=== PATIENT | male | born 1955 | race Caucasian/White ===

== ENCOUNTER 2016-05-07 20:42 | Inpatient (IN) | payer MEDICARE ==
[~2016-05-07 20:42] MED LIST: Sodium Chloride 0.9% 100 ML BAG ONE
[2016-05-07 21:31] LABS: Prothrombin Time 13.9 SEC (12.0-14.7)
[2016-05-07 21:31] LABS: Bilirubin Negative (Negative); Blood, Urine Trace (Negative); Clarity Clear (Clear); Glucose, Urine (Dipstick) Negative (Negative); Leukocyte Small (Negative); Nitrite Negative (Negative); Protein, Urine (Dipstick) Trace mg/dL (Neg-Trace); Specific Gravity, Urine 1.015 (1.005-1.030)
--- NOTE | 2016-05-07 21:31 | RAD ---
PORTABLE SEMIUPRIGHT FRONTAL CHEST RADIOGRAPH 05/07/16 COMPARISON: 10/02/15 HISTORY: Altered mental status. FINDINGS: There is mild prominence of the cardiac silhouette, stable. Inspiration is shallow. No pneumothorax, pleural fluid, focal consolidation, or alveolar edema. IMPRESSION: No acute findings. POS: [facility]
[2016-05-07 21:32] LABS: PTT 31.9 SEC (22.9-36.1)
[2016-05-07 21:42] LABS: ALT (SGPT) 12 U/L (0-55); AST (SGOT) 10 U/L (5-34); Albumin 3.7 g/dL (3.4-4.8); Alkaline Phosphatase 63 U/L (40-150); Anion Gap 18 mmol/L (10-20); BUN (Urea Nitrogen) 21 mg/dL (8.4-25.7); Bilirubin, Total 0.7 mg/dL (0.2-1.2); Calc. Creatinine Clearance 0 mL/min (70-130); Calcium 9.4 mg/dL (7.8-10.44); Carbon Dioxide 25 mmol/L (23-31); Chloride 101 mmol/L (98-107); Estimated GFR-MDRD 65; Glucose 155 mg/dL (80-115); Protein, Total 6.7 g/dL (5.8-8.1); Sodium 140 mmol/L (136-145)
[2016-05-07] MEDS ORDERED: Lorazepam 2 MG/ML VIAL ONE (21:55)
[2016-05-07 21:56] LABS: Bacteria/HPF 4+ HPF (None Seen); Other Casts/LPF 7-10 MIXED CASTS LPF (0-3 Hyaline); Renal Epithelial 0-3 HPF (0-3); Squamous Epithelial 0-3 HPF (0-3); Transitional Epithelial 0-3 HPF (0-3); WBC/HPF 21-50 HPF (0-3); Yeast-All Forms Rare HPF (None Seen)
[2016-05-07 21:56] LABS: Hemoglobin 12.2 g/dL (14.0-18.0); Mean Corpuscular Hemoglobin 29.8 pg (27.0-31.0); Mean Corpuscular Volume 87.6 fl (80.0-94.0); Mean Platelet Volume 10.8 fL (7.4-10.4); Platelet Count 121 thou/uL (130-400); RBC Distribution Width 14.6 % (11.5-14.5); White Blood Cell (WBC) Count 11.1 thou/uL (4.8-10.8)
[2016-05-07 21:57] LABS: Lymphocytes 8 % (21-51); Neutrophil 75 % (42-75)
[2016-05-07 21:58] LABS: Band 8 % (5-11); Metamyelocyte 1 % (0-0); Monocytes 4 % (0-10); Myelocyte 1 % (0-0)
[2016-05-07] MEDS ORDERED: Gentamicin 80 MG/2 ML VIAL ONE (23:18)
[2016-05-07] MEDS ORDERED: cefTRIAXone\\ROCEPHIN 2 GM VIAL ONE (23:18)
[2016-05-07] MEDS ORDERED: Enoxaparin Sodium 40 MG/0.4 ML SYRINGE ONE (23:19)
[2016-05-08] MEDS ORDERED: Acetaminophen 325 MG TAB PO PRN (00:36)
[2016-05-08] MEDS ORDERED: HYDROcodone/Acetaminophen 5/325 mg Tablet PO PRN ×2 (00:36)
[2016-05-08] MEDS ORDERED: Guaifenesin DM 100-10/5 ML UDCUP PO PRN (00:36)
[2016-05-08] MEDS ORDERED: Enoxaparin Sodium 40 MG/0.4 ML SYRINGE SC SCH (00:36)
[2016-05-08] MEDS ORDERED: Ondansetron HCl/PF 4 MG/2 ML Vial SLOW IVP PRN (00:36)
[2016-05-08] MEDS ORDERED: Loperamide HCl 2 MG CAP PO PRN ×2 (00:36)
[2016-05-08] MEDS ORDERED: Bisacodyl 5 MG TAB PO PRN (00:36)
[2016-05-08] MEDS ORDERED: Zolpidem Tartrate 5 MG TAB PO PRN (00:36)
[2016-05-08] MEDS ORDERED: Lorazepam 2 MG/ML VIAL SLOW IVP PRN ×2 (00:38→11:12)
[2016-05-08 08:30] LABS: Lactic Acid 0.8 mmol/L (0.5-2.2)
[2016-05-08 08:34] LABS: ALT (SGPT) 11 U/L (0-55); AST (SGOT) 11 U/L (5-34); Albumin 3.6 g/dL (3.4-4.8); Alkaline Phosphatase 66 U/L (40-150); Anion Gap 17 mmol/L (10-20); BUN (Urea Nitrogen) 20 mg/dL (8.4-25.7); Bilirubin, Total 0.5 mg/dL (0.2-1.2); Calc. Creatinine Clearance 92 mL/min (70-130); Calcium 9.5 mg/dL (7.8-10.44); Carbon Dioxide 24 mmol/L (23-31); Chloride 103 mmol/L (98-107); Estimated GFR-MDRD 71; Globulin 3.2 g/dL (2.4-3.5); Glucose 160 mg/dL (80-115); Potassium 3.9 mmol/L (3.5-5.1); Protein, Total 6.8 g/dL (5.8-8.1); Sodium 140 mmol/L (136-145)
[2016-05-08 09:07] LABS: Hemoglobin 12.6 g/dL (14.0-18.0); Mean Corpuscular HGB CONC 33.5 g/dL (32.0-36.0); Mean Corpuscular Hemoglobin 29.3 pg (27.0-31.0); Mean Corpuscular Volume 87.5 fl (80.0-94.0); Mean Platelet Volume 10.8 fL (7.4-10.4); Platelet Count 124 thou/uL (130-400); RBC Distribution Width 14.5 % (11.5-14.5); Red Blood Cell (RBC) Count 4.29 mill/uL (4.70-6.10); White Blood Cell (WBC) Count 8.3 thou/uL (4.8-10.8)
[2016-05-08 09:39] LABS: Band 6 % (5-11); Lymphocytes 11 % (21-51); Metamyelocyte 2 % (0-0); Monocytes 2 % (0-10); Myelocyte 2 % (0-0); Neutrophil 77 % (42-75)
[2016-05-08] MEDS: cefTRIAXone\\ROCEPHIN 1 GM in Sodium Chloride 0.9% 100 ML IVPB SCH (11:39)
[2016-05-08] MEDS: Atorvastatin Calcium 10 MG TAB PO SCH (19:21)
[2016-05-08] MEDS: Divalproex Sodium 250 MG (DR) TAB PO SCH (19:22)
[2016-05-08] MEDS: Donepezil HCl 10 MG TAB PO SCH (19:23)
[2016-05-08] MEDS: Metoprolol Tartrate 50 MG TAB PO SCH (19:24)
[2016-05-08] MEDS: Levemir Flexpen 100 UNITS/ML PEN SC SCH (20:05)
--- NOTE | 2016-05-08 20:07 | HP ---
DATE OF ADMISSION: 05/07/2016 ADMITTING PHYSICIAN: Guadalupe Washington MD PRIMARY CARE PHYSICIAN: Guadalupe Washington MD CHIEF COMPLAINT: Change in mental status and fever. HISTORY OF PRESENT ILLNESS: Mr. Azevedo is a 61-year-old male with a history of dementia with behavioral symptoms, schizophrenia with paranoia, diabetes type 2, hypertension, hyperlipidemia, peripheral vascular disease with right below knee amputation and left foot with 4 toes amputation, who is a resident of [facility]. Patient was brought to the ED via EMS yesterday due to change in mental status, which has been worsening for the past 3 days and a new onset of fever with a T-max of 102 in the skilled nursing then noted the patient increasingly had agitation, disorientation, and fatigue, Denied any recent URI symptoms, any loss of consciousness, shortness of breath, head trauma, vomiting, or diarrhea. The patient does have a history of multiple falls, but denies any recent episode of him hitting his head or seizure -like activity. History has been gotten from skilled nursing and ED physician's chart as the patient unable to answer questions correct. In the ED, initial workup showed leukocytosis, lactic acidosis and urinary tract infection and due to this, the decision was made to admit patient for IV antibiotics and possible IV fluids. Upon evaluation of the patient today, he is sleepy, easily arousable, somewhat sedated and this is due to 1 mg of Ativan give about 4:00 a.m., then patient became agitated, trying to pull out his Hammer and IV and they gave him medication to relax him. Nurses denies any other acute events overnight. PAST MEDICAL HISTORY: Schizophrenia with paranoia and dementia with behavioral problems, ataxia, hypertension, chronic kidney disease stage III, diabetes type 2, frequent falls, hyperlipidemia, PVD, below knee amputation, left foot four toes amputation. PAST SURGICAL HISTORY: Right below-knee amputation in 2007, left toes amputation in 2012. SOCIAL HISTORY: Patient lives in the [facility]. Denies tobacco , alcohol or illicit drug use. The patient is a FULL CODE. FAMILY HISTORY: Unknown diagnosis of hypertension and heart disease. MEDICATIONS: Seroquel 100 b.i.d., Flomax 0.4 daily, NovoLog per sliding scale, metformin 1000 b.i.d., Depakote 500 extended release b.i.d., aspirin 81 daily, losartan 100 daily, metoprolol 100 b.i.d., atorvastatin 80 at bedtime, Aricept 10 mg 2 tabs p.o. at bedtime, diltiazem ER 300 once a day, Cinnamon Plus 1000 1 tab b.i.d., and Lantus 15 units twice a day. ALLERGIES: SULFA, VANCOMYCIN, and TRIMETHOPRIM. REVIEW OF SYSTEMS: Unable to assess review of systems due to sedation and a history of mental status changes. PHYSICAL EXAMINATION: VITAL SIGNS: Temperature 97.9, pulse 85, respirations 20, O2 sat 95% on room air, blood pressure 151/70. GENERAL: Patient is asleep, easily arousable, in no apparent distress. HEENT: Pupils are round and reactive to light. Negative for scleral icterus. Oropharyngeal is moist without erythema or exudate. NECK: Supple, nontender, no lymphadenopathy. CARDIOVASCULAR: Patient does have a 3/6 systolic murmur. LUNGS: Respirations are clear to auscultation bilaterally. No wheezing, no rhonchi, no rales. GASTROINTESTINAL: Soft, nontender, no masses, no organomegaly. EXTREMITIES: Right below-knee amputation, left fourth toes amputation. SKIN: Normal. No rash. NEUROLOGICAL: Patient is currently sedated, but was previously confused. LABORATORY AND IMAGING STUDIES: WBC 11.1, hemoglobin 12.2, hematocrit 35.9, and platelets 121. Sodium 140, potassium 4, chloride 101, carbon dioxide 25, BUN 21, creatinine 1.14, glucose is 155. Lactic acid 3.0. BNP 183.3 albumin 3.7. Total protein 6.7, AST 10, ALT 12, alkaline phosphatase 63. Urine, trace blood, positive leukocyte esterase, +4 bacteria, 21-50 wbcs'. IMAGING STUDIES: Chest x-ray, no acute findings. ASSESSMENT AND PLAN: This 61-year-old male, who presented to the emergency room today with complaint of altered mental status and fever, found positive for a urinary tract infection. 1. Urinary tract infection. We will place patient on Rocephin 1 gram daily. We will wait for urine cultures and adjust antibiotics as needed. We will monitor altered mental status closely and adjust medications accordingly. We will place patient on 0.5 Ativan p.r.n. agitation as 1 mg is making him too sedated. We will continue to hydration as needed. We will restart the patient' s home medications for his diabetes type 2. We will monitor his sugars closely. Deep venous thrombosis prophylaxis on Lovenox 40 daily, GI prophylaxis , Protonix 40 daily. CODE STATUS: Patient is a FULL CODE. DISPOSITION: Plan to discharge patient once medically stable back to the skilled nursing. JETHRO
[2016-05-08] MEDS ORDERED: Non-Formulary Item 1 EACH (Insulin Glargine,Hum.Rec.Anlog [Lantus Solostar] 15 UNIT) SQ SCH (21:00)
[2016-05-08] MEDS ORDERED: Non-Formulary Item 1 EACH (Atorvastatin Calcium [Atorvastatin Calcium] 80 MG) PO SCH (21:00)
[2016-05-08] MEDS ORDERED: DIVALPROEX SODIUM 500 MG PO SCH (21:00)
[2016-05-08] MEDS ORDERED: Non-Formulary Item 1 EACH (Metoprolol Tartrate [Lopressor] 100 MG) PO SCH (21:00)
[2016-05-09 07:07] LABS: Band 2 % (5-11); Eosinophils 1 % (0-10); Lymphocytes 11 % (21-51); MDiff Complete? YES; Mean Corpuscular HGB CONC 33.7 g/dL (32.0-36.0); Mean Corpuscular Hemoglobin 29.5 pg (27.0-31.0); Mean Corpuscular Volume 87.7 fl (80.0-94.0); Mean Platelet Volume 10.3 fL (7.4-10.4); Metamyelocyte 1 % (0-0); Monocytes 8 % (0-10); Neutrophil 77 % (42-75); Platelet Count 124 thou/uL (130-400); RBC Distribution Width 14.2 % (11.5-14.5); Red Blood Cell (RBC) Count 4.06 mill/uL (4.70-6.10); White Blood Cell (WBC) Count 4.1 thou/uL (4.8-10.8)
[2016-05-09 07:31] LABS: Anion Gap 17 mmol/L (10-20); BUN (Urea Nitrogen) 19 mg/dL (8.4-25.7); Calc. Creatinine Clearance 107 mL/min (70-130); Calcium 9.4 mg/dL (7.8-10.44); Carbon Dioxide 23 mmol/L (23-31); Chloride 104 mmol/L (98-107); Estimated GFR-MDRD 84; Glucose 225 mg/dL (80-115); Potassium 4.1 mmol/L (3.5-5.1); Sodium 140 mmol/L (136-145)
[2016-05-09] MEDS ORDERED: Zolpidem Tartrate 5 MG TAB PO PRN (08:38)
[2016-05-09] MEDS ORDERED: Bisacodyl 5 MG TAB PO PRN (08:38)
[2016-05-09] MEDS: Divalproex Sodium 250 MG (DR) TAB PO SCH ×3 (08:47→22:38)
[2016-05-09] MEDS: Losartan Potassium 25 MG TAB PO SCH ×2 (08:47→12:37)
[2016-05-09] MEDS: Aspirin 81 mg Enteric Coated Tablet PO SCH ×2 (08:48→12:36)
[2016-05-09] MEDS: Tamsulosin HCl 0.4 MG CAP PO SCH ×2 (08:48→12:38)
[2016-05-09] MEDS: Metoprolol Tartrate 50 MG TAB PO SCH ×3 (08:48→22:38)
[2016-05-09] MEDS: Levemir Flexpen 100 UNITS/ML PEN SC SCH ×2 (08:48→22:23)
[2016-05-09] MEDS ORDERED: Non-Formulary Item 1 EACH (Losartan Potassium [Losartan Potassium] 100 MG) PO SCH (09:00)
[2016-05-09] MEDS ORDERED: DILTIAZEM HCL 300 MG PO SCH (09:00)
[2016-05-09] MEDS ORDERED: FLU VACC QS2016-17 36MOS UP/PF 0.5 ML SYRINGE IM ONE (09:00)
[2016-05-09] MEDS: cefTRIAXone\\ROCEPHIN 1 GM in Sodium Chloride 0.9% 100 ML IVPB SCH (12:18)
[2016-05-09] MEDS: Atorvastatin Calcium 10 MG TAB PO SCH (22:37)
[2016-05-09] MEDS: Donepezil HCl 10 MG TAB PO SCH (22:38)
[2016-05-09] MEDS ORDERED: Levemir Flexpen 100 UNITS/ML PEN SC SCH (23:00)
[2016-05-10 06:27] VITALS: BMI 26.7
[2016-05-10] MEDS: Levemir Flexpen 100 UNITS/ML PEN SC SCH ×2 (08:09→20:31)
[2016-05-10] MEDS: Aspirin 81 mg Enteric Coated Tablet PO SCH ×2 (08:43→10:22)
[2016-05-10] MEDS: Losartan Potassium 25 MG TAB PO SCH ×2 (08:44→10:20)
[2016-05-10] MEDS: Divalproex Sodium 250 MG (DR) TAB PO SCH ×3 (08:44→20:24)
[2016-05-10] MEDS: Metoprolol Tartrate 50 MG TAB PO SCH ×3 (08:44→20:54)
[2016-05-10] MEDS: Tamsulosin HCl 0.4 MG CAP PO SCH ×2 (08:45→10:21)
[2016-05-10] MEDS: cefTRIAXone\\ROCEPHIN 1 GM in Sodium Chloride 0.9% 100 ML IVPB SCH (11:51)
[2016-05-10] MEDS ORDERED: Lorazepam 0.5 MG TAB PO PRN (12:47)
[2016-05-10] MEDS: Donepezil HCl 10 MG TAB PO SCH (20:25)
[2016-05-10] MEDS: Atorvastatin Calcium 10 MG TAB PO SCH (20:26)
[2016-05-11] MEDS: Divalproex Sodium 250 MG (DR) TAB PO SCH ×2 (08:44→20:32)
[2016-05-11] MEDS: Tamsulosin HCl 0.4 MG CAP PO SCH (08:51)
[2016-05-11] MEDS: Losartan Potassium 25 MG TAB PO SCH (08:52)
[2016-05-11] MEDS: Aspirin 81 mg Enteric Coated Tablet PO SCH (08:52)
[2016-05-11] MEDS: Metoprolol Tartrate 50 MG TAB PO SCH ×2 (08:52→20:34)
[2016-05-11] MEDS: Levemir Flexpen 100 UNITS/ML PEN SC SCH ×2 (08:53→20:38)
[2016-05-11] MEDS: cefTRIAXone\\ROCEPHIN 1 GM in Sodium Chloride 0.9% 100 ML IVPB SCH (12:42)
[2016-05-11] MEDS: Donepezil HCl 10 MG TAB PO SCH (20:33)
[2016-05-11] MEDS: Atorvastatin Calcium 10 MG TAB PO SCH (20:35)
[2016-05-12 05:32] LABS: Hemoglobin 12.3 g/dL (14.0-18.0); Red Blood Cell (RBC) Count 4.26 mill/uL (4.70-6.10); White Blood Cell (WBC) Count 5.5 thou/uL (4.8-10.8)
[2016-05-12 05:33] LABS: Eosinophils 5 % (0-10); Lymphocytes 20 % (21-51); MDiff Complete? YES; Manual Diff?? YES; Mean Corpuscular HGB CONC 32.7 g/dL (32.0-36.0); Mean Corpuscular Hemoglobin 28.7 pg (27.0-31.0); Mean Corpuscular Volume 87.8 fL (80.0-94.0); Mean Platelet Volume 10.1 fL (7.4-10.4); Monocytes 12 % (0-10); Neutrophil 54 % (42-75); Platelet Count 181 thou/uL (130-400); RBC Distribution Width 13.8 % (11.5-14.5); Reactive Lymphocytes 9 % (0-10)
[2016-05-12 05:34] LABS: PLT Morphology Comment Appears Adequate; RBC Morphology Normal
[2016-05-12 05:36] LABS: Anion Gap 16 mmol/L (10-20); BUN (Urea Nitrogen) 28 mg/dL (8.4-25.7); Calc. Creatinine Clearance 90 mL/min (70-130); Carbon Dioxide 20 mmol/L (23-31); Chloride 106 mmol/L (98-107); Estimated GFR-MDRD 72; Sodium 138 mmol/L (136-145)
[2016-05-12 05:37] LABS: Calcium 9.7 mg/dL (7.8-10.44); Glucose 300 mg/dL (80-115)
[2016-05-12 07:27] VITALS: BP 119/56; TEMP 98.1
[2016-05-12] MEDS: Tamsulosin HCl 0.4 MG CAP PO SCH (08:44)
[2016-05-12] MEDS: Aspirin 81 mg Enteric Coated Tablet PO SCH (08:44)
[2016-05-12] MEDS: Metoprolol Tartrate 50 MG TAB PO SCH (08:44)
[2016-05-12] MEDS: Losartan Potassium 25 MG TAB PO SCH (08:45)
[2016-05-12] MEDS: Levemir Flexpen 100 UNITS/ML PEN SC SCH (08:45)
[2016-05-12] MEDS: Divalproex Sodium 250 MG (DR) TAB PO SCH (08:45)
--- NOTE | 2016-05-13 00:54 | DIS ---
DATE OF ADMISSION: 05/07/2016 DATE OF DISCHARGE: 05/12/2016 PRIMARY CARE PHYSICIAN: Guadalupe Washington M.D. FINAL DIAGNOSES: 1. Fever, resolved. 2. Urinary tract infection, resolved. 3. Altered mental status back to baseline. 4. Hypertension, stable. 5. Diabetes type 2, stable. 6. Right BKA, stable. 7. Dementia with behavioral changes, stable. 8. Schizophrenia, stable. DISCHARGE MEDICATIONS: Seroquel 100 b.i.d., Flomax 0.4 daily, metformin 1000 b.i.d., Depakote 500 b.i.d., aspirin 81 daily, losartan 100 daily, metoprolol 100 b.i.d., atorvastatin 80 at bedtime, Aricept 20 at bedtime, diltiazem 300 daily, and Lantus 15 b.i.d. DISCHARGE INSTRUCTIONS: PCP to follow up in 1 week. The patient is to start physical therapy once back in detention, diabetic heart healthy diet and fall precautions. BRIEF HOSPITAL COURSE: Mr. Azevedo is a 61-year-old male who is a resident of [facility] with a history of dementia with behavioral changes, schizophrenia with paranoia, diabetes type 2, PVD with right BKA and left four toes amputation, who presented to the ED on the due to fever and worsening change in mental status. The patient was noted to have a UTI and was subsequently admitted for IV antibiotics. The patient was treated with IV Rocephin for 5 days and mental status progressively improved and leukocytosis resolved. Lactic acidosis resolved and the patient was able to return to baseline. Urine culture confirmed urinary tract infection with E. coli which was sensitive to the Rocephin given. The patient's mental status returned to baseline and he was subsequently deemed stable enough to return to the detention. The patient was discharged back to detention in a stable condition on 05/12/2016. Discharge vitals; temperature 98.1, pulse 62, respirations 18, O2 sat 93% on room air, and blood pressure 119/56. CODE STATUS: The patient is a FULL CODE. [facility]
== END 2016-05-12 10:40 | DRG 690 ==
LOC: MADERS 20:42 → EDBD 20:42 → MADMS 23:10 → UNDOADMIN 23:10 → EDBD 23:10
PROVIDERS: ADMIT Family Medicine; ATTEND Family Medicine
DX: N39.0 Urinary tract infection, site not specified (principal); E87.2 Acidosis; F03.91 Unspecified dementia, unspecified severity, with behavioral disturbance; F20.0 Paranoid schizophrenia; B96.20 Unspecified Escherichia coli [E. coli] as the cause of diseases classified elsewhere; R41.82 Altered mental status, unspecified; E13.51 Other specified diabetes mellitus with diabetic peripheral angiopathy without gangrene; I12.9 Hypertensive chronic kidney disease with stage 1 through stage 4 chronic kidney disease, or unspecified chronic kidney disease; E11.22 Type 2 diabetes mellitus with diabetic chronic kidney disease; N18.3 Chronic kidney disease, stage 3 (moderate); Z89.511 Acquired absence of right leg below knee; Z89.422 Acquired absence of other left toe(s); Z91.81 History of falling; E78.5 Hyperlipidemia, unspecified
CPT/HCPCS: 36415; 36416; 51702; 71010; 80048; 80053; 81003; 81015; 83605; 83880; 85025; 85610; 85730; 87040; 87077; 87086; 87186; 93005; 96365; 96372; 96375; A4216; J0696; J1580; J1650; J1815; J2060; J7050

== ENCOUNTER 2017-07-31 18:32 | Emergency (ER) | payer MEDICARE, MEDICAID ==
[~2017-07-31 18:32] MED LIST changes: +Sodium Chloride 0.9% 1,000 ML BAG ONE
[2017-07-31 19:31] LABS: Anisocytosis SLIGHT = 6-15 cells (100X) (0-5/hpf); Band 2 % (5-11); Eosinophils 1 % (0-10); Hemoglobin 12.8 g/dL (14.0-18.0); Lymphocytes 16 % (21-51); MDiff Complete? YES; Mean Corpuscular Volume 84.1 fl (80.0-94.0); Mean Platelet Volume 10.5 fL (7.4-10.4); Monocytes 6 % (0-10); Neutrophil 75 % (42-75); PLT Morphology Comment Appears Adequate; Platelet Count 149 thou/uL (130-400); RBC Distribution Width 14.3 % (11.5-14.5); Red Blood Cell (RBC) Count 4.92 mill/uL (4.70-6.10); White Blood Cell (WBC) Count 4.9 thou/uL (4.8-10.8)
[2017-07-31 19:36] LABS: ALT (SGPT) 23 U/L (8-55); AST (SGOT) 30 U/L (5-34); Albumin 3.9 g/dL (3.4-4.8); Alkaline Phosphatase 70 U/L (40-150); Anion Gap 23 mmol/L (10-20); BUN (Urea Nitrogen) 25 mg/dL (8.4-25.7); Bilirubin, Total 0.3 mg/dL (0.2-1.2); Calc. Creatinine Clearance 0 mL/min (70-130); Carbon Dioxide 19 mmol/L (23-31); Chloride 106 mmol/L (98-107); Estimated GFR-MDRD 78; Globulin 3.7 g/dL (2.4-3.5); Glucose 215 mg/dL (80-115); Potassium 5.2 mmol/L (3.5-5.1); Protein, Total 7.6 g/dL (5.8-8.1); Sodium 143 mmol/L (136-145)
[2017-07-31 19:38] LABS: Troponin I 0.017 ng/mL (< 0.028)
[2017-07-31 19:40] LABS: CKMB 52.8 ng/mL (0-6.6)
[2017-07-31 19:59] LABS: Bilirubin Negative (Negative); Blood, Urine Moderate (Negative); Clarity Slightly Cloudy (Clear); Glucose, Urine (Dipstick) 100 mg/dL (Negative); Leukocyte Moderate (Negative); Nitrite Negative (Negative); Protein, Urine (Dipstick) 30 mg/dL (Neg-Trace)
[2017-07-31 20:12] LABS: Bacteria/HPF 4+ HPF (None Seen); Hyaline Casts/LPF 0-3 HYALINE CAST LPF (0-3 Hyaline); RBC/HPF 21-50 HPF (0-3); Renal Epithelial 0-3 HPF (0-3); Squamous Epithelial 0-3 HPF (0-3); Transitional Epithelial 0-3 HPF (0-3)
[2017-07-31] MEDS ORDERED: cefTRIAXone\\ROCEPHIN 1 GM VIAL ONE (20:24)
--- NOTE | 2017-07-31 20:28 | RAD ---
PORTABLE CHEST: Date: 07/31/17 PROVIDED CLINICAL HISTORY: Dyspnea. COMPARISON: 11/22/16. FINDINGS: Cardiac and mediastinal silhouette within normal limits. Lungs appear clear. Left lung apex is not we ll visualized due to patient's soft tissues overlying this region. Given this limitation, no evidence for pneumothorax. IMPRESSION: No evidence for an acute cardiopulmonary process. POS: [facility]
== END 2017-07-31 20:50 | disposition short-term general hospital (02) ==
LOC: MADERS 18:32
DX: E11.10 Type 2 diabetes mellitus with ketoacidosis without coma (principal); N39.0 Urinary tract infection, site not specified; E78.5 Hyperlipidemia, unspecified; I12.9 Hypertensive chronic kidney disease with stage 1 through stage 4 chronic kidney disease, or unspecified chronic kidney disease; E11.22 Type 2 diabetes mellitus with diabetic chronic kidney disease; N18.3 Chronic kidney disease, stage 3 (moderate); F03.90 Unspecified dementia, unspecified severity, without behavioral disturbance, psychotic disturbance, mood disturbance, and anxiety
CPT/HCPCS: 36415; 36416; 71045; 80053; 81003; 81015; 82553; 84443; 84484; 85025; 93005; 94760; 96361; 96365; J0696; J7050

== ENCOUNTER 2017-08-19 22:29 | Emergency (ER) | payer MEDICARE ==
[2017-08-19] MEDS ORDERED: Aspirin 300 MG Suppository ONE (23:09)
--- NOTE | 2017-08-19 23:20 | RAD ---
CHEST ONE VEIW: 08/19/17 HISTORY: Altered mental status. COMPARISON: Radiograph 07/31/17. FINDINGS: The lungs are clear. No pneumothorax or effusion. The cardiac silhouette and mediastinal contours are within normal limits. IMPRESSION: No acute intrathoracic abnormality. POS: [facility]
[2017-08-19 23:34] LABS: #Basophils 0.1 thou/uL (0.0-0.2); #Lymphocytes 1.5 thou/uL (1.20-3.40); #Monocytes 0.7 thou/uL (0.11-0.59); #Neutrophils 3.4 thou/uL (1.40-6.50); %Eosinophils 0.9 % (0.0-10.0); %Lymphocytes 25.8 % (21.0-51.0); %Monocytes 11.6 % (0.0-10.0); %Neutrophils 60.7 % (42.0-75.0); Hemoglobin 12.1 g/dL (14.0-18.0); Mean Corpuscular HGB CONC 33.3 g/dL (32.0-36.0); Mean Corpuscular Hemoglobin 27.5 pg (27.0-31.0); Mean Corpuscular Volume 82.4 fl (80.0-94.0); Mean Platelet Volume 9.1 fL (7.4-10.4); Platelet Count 157 thou/uL (130-400); RBC Distribution Width 13.8 % (11.5-14.5); Red Blood Cell (RBC) Count 4.41 mill/uL (4.70-6.10); White Blood Cell (WBC) Count 5.6 thou/uL (4.8-10.8)
--- NOTE | 2017-08-19 23:39 | CT ---
CT BRAIN WITHOUT CONTRAST: 08/19/17 HISTORY: Altered mental status. COMPARISON: CT brain 08/10/17. FINDINGS: Moderate atrophy. No acute hemorrhage or infarct. No midline shift or mass effect. Extensive old lacunar infarctions. Fluid fills the mastoids. Globes are normal. IMPRESSION: No acute intracranial abnormality. Chronic changes. POS: [facility]
[2017-08-19 23:41] LABS: Bilirubin Negative (Negative); Blood, Urine Moderate (Negative); Clarity Hazy (Clear); Glucose, Urine (Dipstick) Negative (Negative); Leukocyte Small (Negative); Nitrite Positive (Negative); Protein, Urine (Dipstick) 30 mg/dL (Neg-Trace)
[2017-08-19 23:43] LABS: INR-International Normal Ratio 1.1; PTT 33.2 SEC (22.9-36.1); Prothrombin Time 14.4 SEC (12.0-14.7)
[2017-08-19 23:44] LABS: Bacteria/HPF 4+ HPF (None Seen); RBC/HPF GREATER THAN 50-TNTC HPF (0-3); Squamous Epithelial 0-3 HPF (0-3)
[2017-08-19 23:45] LABS: Amphetamine Not Detected (NotDetected); Barbiturates Screen Not Detected (NotDetected); Benzodiazepine Screen Not Detected (NotDetected); Cocaine Metabolite Screen Not Detected (NotDetected); Methadone Not Detected (NotDetected); Methamphetamine Not Detected (NotDetected); Opiate Screen Not Detected (NotDetected); Oxycodone Screen Not Detected (NotDetected); Phencyclidine (PCP) Not Detected (NotDetected); THC/Cannabinoid Screen Not Detected (NotDetected); Tricyclic Screen Detected (NotDetected)
[2017-08-19 23:46] LABS: Medtox Control Line Valid? VALID (VALID)
[2017-08-19 23:54] LABS: ALT (SGPT) 13 U/L (8-55); AST (SGOT) 10 U/L (5-34); Acetaminophen Less than 6.0 mcg/mL (10.0-30.0); Albumin 3.4 g/dL (3.4-4.8); Alcohol Less than 10 mg/dL (Less than 10); Alkaline Phosphatase 52 U/L (40-150); Anion Gap 17 mmol/L (10-20); BUN (Urea Nitrogen) 18 mg/dL (8.4-25.7); Bilirubin, Total 0.5 mg/dL (0.2-1.2); CK (CPK) 86 U/L (30-200); CKMB 1.6 ng/mL (0-6.6); Calc. Creatinine Clearance 0 mL/min (70-130); Calcium 9.9 mg/dL (7.8-10.44); Carbon Dioxide 24 mmol/L (23-31); Chloride 107 mmol/L (98-107); Estimated GFR-MDRD Greater than 90; Globulin 3.7 g/dL (2.4-3.5); Glucose 88 mg/dL (80-115); Magnesium 1.8 mg/dL (1.6-2.6); Potassium 4.3 mmol/L (3.5-5.1); Protein, Total 7.1 g/dL (5.8-8.1); Salicylate Less than 8.0 mg/dL (15.0-30.0); Sodium 144 mmol/L (136-145)
[2017-08-20] MEDS ORDERED: cefTRIAXone\\ROCEPHIN 2 GM VIAL ONE (00:09)
[2017-08-20] MEDS ORDERED: ceFOXitin 1 GM VIAL ONE (01:48)
== END 2017-08-20 02:00 | disposition home or self-care (01) ==
LOC: MADERS 22:29
DX: E11.51 Type 2 diabetes mellitus with diabetic peripheral angiopathy without gangrene (principal); R41.82 Altered mental status, unspecified; N39.0 Urinary tract infection, site not specified; E78.5 Hyperlipidemia, unspecified; N18.3 Chronic kidney disease, stage 3 (moderate); I12.0 Hypertensive chronic kidney disease with stage 5 chronic kidney disease or end stage renal disease; G30.9 Alzheimer's disease, unspecified; F02.80 Dementia in other diseases classified elsewhere, unspecified severity, without behavioral disturbance, psychotic disturbance, mood disturbance, and anxiety; Z79.899 Other long term (current) drug therapy; Z79.82 Long term (current) use of aspirin; Z79.84 Long term (current) use of oral hypoglycemic drugs
CPT/HCPCS: 36415; 36416; 51701; 70450; 71045; 80053; 80306; 80307; 81001; 82553; 83605; 83735; 83880; 84484; 85025; 85610; 85730; 87040; 87077; 87086; 87186; 93005; 94760; 96365; J0694; J0696; J7050

== ENCOUNTER 2017-10-01 22:54 | Emergency (ER) | payer MEDICAID, MEDICARE ==
--- NOTE | 2017-10-02 00:06 | RAD ---
PORTABLE CHEST: History: Cough. FINDINGS: Lung pittman appear clear. No infiltrate identified. Heart and mediastinum unremarkable. IMPRESSION: No acute process identified. POS: [facility]
== END 2017-10-02 01:00 ==
LOC: MADERS 22:54
DX: R05 Cough (principal); J98.8 Other specified respiratory disorders; I12.9 Hypertensive chronic kidney disease with stage 1 through stage 4 chronic kidney disease, or unspecified chronic kidney disease; E11.22 Type 2 diabetes mellitus with diabetic chronic kidney disease; N18.3 Chronic kidney disease, stage 3 (moderate)
CPT/HCPCS: 71045